=== PATIENT | female | born 1995 | race Caucasian/White ===

== ENCOUNTER 2016-09-18 07:49 | Day surgery (SDC) | payer OTHER ==
[~2016-09-18] VITALS: Ht 167.6 cm; Wt 88.0 kg
[2016-09-18] MEDS ORDERED: SODIUM CHLORIDE 0.9% 1,000 ML IV SCH (08:48)
[2016-09-18 09:04] VITALS: BP 123/80
[2016-09-18] MEDS ORDERED: GABA300C10 PO (09:07)
[2016-09-18 11:51] LABS: ASPARTATE AMINO TRANSFERASE 12 U/L (15-37); BLOOD UREA NITROGEN 10 mg/dL (7-18)
[2016-09-23 14:53] LABS: ALBUMIN CSF 11 mg/dL (11-48); ALBUMIN SERUM 4.1 g/dL (3.5-5.5); CSF IGG INDEX 0.8 (0.0-0.7); CSF/SERUM ALBUMIN INDEX 3 (0-8); IGG SERUM 936 mg/dL (700-1600); IGG SYNTHESIS RATE CSF 0.7 mg/day (-9.9 TO +3.3); IGG/ALBUMIN RATIO CSF 0.18 (0.00-0.25); MYELIN BASIC PROTEIN CSF 0.7 ng/mL (0.0-1.2)
== END 2016-09-18 14:30 | disposition home or self-care (01) ==
LOC: OUT 07:49
PROVIDERS: ATTEND Registered Nurse
DX: R20.0 Anesthesia of skin (principal); R42 Dizziness and giddiness
CPT/HCPCS: 36415; 62270; 77003; 80069; 80076; 82040; 82042; 82784; 83873; 86645; 86695; 86696; 86704; 86706; 86708; 86762; 86777; 86778; 86803; 87340; J7030

== ENCOUNTER 2017-03-28 15:19 | Emergency (ER) | payer OTHER ==
[~2017-03-28] VITALS: Ht 167.6 cm; Wt 95.8 kg
[~2017-03-28 15:19] MED LIST: GABA300C10 PO
[2017-03-28 16:19] LABS: HEMATOCRIT 39.6 % (34.6-47.8); HEMOGLOBIN 13.7 g/dL (11.7-16.4); WHITE BLOOD COUNT 5.2 x10^3/uL (3.4-10)
[2017-03-28 16:26] LABS: BLOOD UREA NITROGEN 6 mg/dL (7-18)
[2017-03-28] MEDS ORDERED: MORPHINE SULFATE 4 MG/ML, 1ML IVPush PRN (18:30)
[2017-03-28] MEDS ORDERED: SODIUM CHLORIDE 0.9% 1,000ML IVBOLUS ONE (18:30)
[2017-03-28] MEDS ORDERED: SODIUM CHLORIDE FLUSH 10ML SYR IVF ONE (18:30)
[2017-03-28] MEDS ORDERED: ONDANSETRON 2MG/ML, 2ML IVPush ONE (18:30)
[2017-03-28] MEDS ORDERED: FLUO20CA19 PO (18:34)
[2017-03-28 19:30] LABS: HCG UR LOT HCG7030192
[2017-03-28 19:42] LABS: HCG UR OBC PASS
[2017-03-28 20:56] VITALS: BP 100/64
== END 2017-03-28 20:58 | disposition home or self-care (01) ==
LOC: ED 19:20
DX: R10.33 Periumbilical pain (principal); R10.12 Left upper quadrant pain; E28.2 Polycystic ovarian syndrome; Z87.442 Personal history of urinary calculi; Z87.891 Personal history of nicotine dependence; Z97.5 Presence of (intrauterine) contraceptive device
CPT/HCPCS: 36415; 76770; 80048; 81001; 81025; 82040; 85025; 87086; 96361; 96374; 96375; 99285; J2405; J7030

== ENCOUNTER 2017-04-22 08:46 | Emergency (ER) | payer OTHER ==
[~2017-04-22] VITALS: Ht 167.6 cm; Wt 94.5 kg
[~2017-04-22 08:46] MED LIST changes: +FLUO20CA19 PO
[2017-04-22] MEDS ORDERED: FING0.5C3 PO (09:21)
[2017-04-22] MEDS ORDERED: ONDANSETRON ODT 4 MG ONE (09:25)
[2017-04-22] MEDS ORDERED: KETOROLAC 30 MG/1 ML ONE (09:25)
[2017-04-22 09:29] LABS: MICROSCOPIC NOT IND
[2017-04-22] MEDS ORDERED: ONDANSETRON ODT 4 MG PO ONE (09:30)
[2017-04-22] MEDS ORDERED: KETOROLAC 60 MG/2 ML IM ONE (09:30)
[2017-04-22 09:49] LABS: BASOPHILS % (AUTO) 0 % (0-1); EOSINOPHILS % (AUTO) 0 % (1-7); LYMPHOCYTES # (AUTO) 0.43 x10^3/uL (1-3.4); LYMPHOCYTES % (AUTO) 7 % (22-44); MD NO; MEAN CORPUSCULAR HEMOGLOBIN 30.6 pg (27.0-34.8); MEAN CORPUSCULAR HGB CONC 34.1 g/dL (32.4-35.8); MEAN CORPUSCULAR VOLUME 89.8 fL (80-100); MEAN PLATELET VOLUME 8.4 fL (7.4-10.4); MONOCYTES # (AUTO) 0.33 x10^3/uL (0.2-0.8); MONOCYTES % (AUTO) 5 % (2-9); NEUTROPHILS # (AUTO) 5.71 x10^3/uL (1.8-6.8); NEUTROPHILS % (AUTO) 88 % (42-75); PLATELET COUNT 288 x10^3/uL (130-400); RED BLOOD COUNT 4.66 x10^6/uL (3.82-5.3); RED CELL DISTRIBUTION WIDTH 12.3 % (9.6-15.2)
[2017-04-22 09:49] LABS: CULTURE INDICATED? NO
[2017-04-22 10:01] LABS: ALBUMIN 3.9 g/dL (3.4-5.0); ANION GAP 7 mmol/L (5-15); CALCIUM 8.8 mg/dL (8.5-10.1); CHLORIDE 107 mmol/L (98-107); CREATININE 0.93 mg/dL (0.55-1.02)
[2017-04-22 11:06] VITALS: BP 121/67
== END 2017-04-22 11:47 | disposition home or self-care (01) ==
LOC: ED 11:40
DX: S39.012A Strain of muscle, fascia and tendon of lower back, initial encounter (principal); Z87.891 Personal history of nicotine dependence; X58.XXXA Exposure to other specified factors, initial encounter; Y93.89 Activity, other specified; Y92.89 Other specified places as the place of occurrence of the external cause; Y99.8 Other external cause status
CPT/HCPCS: 36415; 74176; 80048; 81003; 82040; 84703; 85025; 96372; 99285; J1885; Q0162

== ENCOUNTER 2017-07-13 21:28 | Inpatient (IN) | payer OTHER ==
[~2017-07-13] VITALS: Ht 167.6 cm; Wt 95.9 kg
[~2017-07-13 21:28] MED LIST changes: +CYCL-259 PO; +FING0.5C3 PO; +OXYB5TAB7 PO
[2017-07-13] MEDS ORDERED: ONDANSETRON 2MG/ML, 2ML ONE (21:55)
[2017-07-13] MEDS ORDERED: HYDROmorphone 1 MG/ML, 1ML ONE (21:55)
[2017-07-13] MEDS ORDERED: ONDANSETRON 2MG/ML, 2ML IVPush ONE (22:00)
[2017-07-13] MEDS ORDERED: SODIUM CHLORIDE 0.9% 1,000ML IVBOLUS ONE ×2 (22:00→23:00)
[2017-07-13] MEDS: HYDROmorphone 1 MG/ML, 1ML IVPush PRN (22:07)
[2017-07-13 22:16] LABS: MEAN CORPUSCULAR HEMOGLOBIN 31.1 pg (27.0-34.8); MEAN CORPUSCULAR HGB CONC 34.6 g/dL (32.4-35.8); MEAN CORPUSCULAR VOLUME 89.9 fL (80-100); MEAN PLATELET VOLUME 8.5 fL (7.4-10.4); PLATELET COUNT 275 x10^3/uL (130-400); RED BLOOD COUNT 4.65 x10^6/uL (3.82-5.3); RED CELL DISTRIBUTION WIDTH 13.2 % (9.6-15.2)
[2017-07-13 22:26] LABS: CULTURE INDICATED? YES; MICROSCOPIC AUTO
[2017-07-13 22:28] LABS: ALANINE AMINOTRANSFERASE 76 U/L (12-78); ALBUMIN 4.1 g/dL (3.4-5.0); ANION GAP 12 mmol/L (5-15); CALCIUM 8.8 mg/dL (8.5-10.1); CHLORIDE 106 mmol/L (98-107); CREATININE 1.24 mg/dL (0.55-1.02)
[2017-07-13 22:32] LABS: ALKALINE PHOSPHATASE 97 U/L (45-117); BILIRUBIN,TOTAL 2.2 mg/dL (0.2-1.0); TOTAL PROTEIN 7.8 g/dL (6.4-8.2)
[2017-07-13] MEDS ORDERED: CEFTRIAXONE PMX 1GM/50ML 50 ML IV ONE (23:00)
[2017-07-13] MEDS ORDERED: CEFTRIAXONE PMX 1GM/50ML 50 ML ONE (23:05)
[2017-07-13 23:31] LABS: BASOPHILS % (AUTO) 0 % (0-1); EOSINOPHILS % (AUTO) 0 % (1-7); LYMPHOCYTES # (AUTO) 0.21 x10^3/uL (1-3.4); LYMPHOCYTES % (AUTO) 1 % (22-44); MONOCYTES # (AUTO) 0.55 x10^3/uL (0.2-0.8); MONOCYTES % (AUTO) 3 % (2-9); NEUTROPHILS # (AUTO) 18.62 x10^3/uL (1.8-6.8); NEUTROPHILS % (AUTO) 96 % (42-75)
[2017-07-13 23:44] LABS: CULTURE INDICATED? YES; MICROSCOPIC INDICATED
[2017-07-13 23:59] LABS: MD SCAN
[2017-07-14] MEDS ORDERED: SODIUM CHLORIDE 0.9% 1,000ML IVBOLUS ONE (00:30)
[2017-07-14] MEDS ORDERED: SODIUM CHLORIDE 0.9% 1,000 ML IV ONE (00:32)
[2017-07-14] MEDS ORDERED: HYDROmorphone 1 MG/ML, 1ML ONE (00:37)
[2017-07-14] MEDS: HYDROmorphone 1 MG/ML, 1ML IVPush PRN (00:39)
[2017-07-14] MEDS ORDERED: MORPHINE SULFATE 4 MG/ML, 1ML IVPush PRN (01:00)
[2017-07-14] MEDS ORDERED: ONDANSETRON 2MG/ML, 2ML IVPush PRN ×2 (01:00→18:30)
[2017-07-14 01:34] VITALS: BP 158/85
[2017-07-14] MEDS: HEPARIN 5,000 UNITS/ML, 1ML SQ SCH ×3 (03:30→19:30)
[2017-07-14] MEDS ORDERED: hydrALAzine 20 MG/ML, 1ML IVPush PRN (03:30)
[2017-07-14] MEDS: morphine SULFATE 10 MG/ML, 1ML IVPush PRN ×5 (03:45→21:56)
[2017-07-14] MEDS: ONDANSETRON 2MG/ML, 2ML IVPush PRN ×3 (03:45→20:20)
[2017-07-14] MEDS: LACTATED RINGERS 1,000 ML IV SCH ×2 (03:46→15:22)
[2017-07-14 05:29] LABS: CHLORIDE 110 mmol/L (98-107)
[2017-07-14 05:32] LABS: BASOPHILS # (AUTO) 0.01 x10^3/uL (0-0.1); BASOPHILS % (AUTO) 0 % (0-1); EOSINOPHILS # (AUTO) 0.01 x10^3/uL (0-0.4); EOSINOPHILS % (AUTO) 0 % (1-7); LYMPHOCYTES # (AUTO) 0.26 x10^3/uL (1-3.4); LYMPHOCYTES % (AUTO) 2 % (22-44); MD NO; MEAN CORPUSCULAR HGB CONC 34.5 g/dL (32.4-35.8); MEAN PLATELET VOLUME 8.3 fL (7.4-10.4); MONOCYTES # (AUTO) 0.88 x10^3/uL (0.2-0.8); MONOCYTES % (AUTO) 5 % (2-9); NEUTROPHILS # (AUTO) 15.92 x10^3/uL (1.8-6.8); NEUTROPHILS % (AUTO) 93 % (42-75); PLATELET COUNT 219 x10^3/uL (130-400); RED BLOOD COUNT 4.13 x10^6/uL (3.82-5.3); RED CELL DISTRIBUTION WIDTH 13.6 % (9.6-15.2)
[2017-07-14 05:33] LABS: ANION GAP 7 mmol/L (5-15); CALCIUM 8.2 mg/dL (8.5-10.1); CREATININE 1.04 mg/dL (0.55-1.02)
[2017-07-14] MEDS ORDERED: MAGNESIUM SULFATE PMX 2GM/50ML 50 ML IV ONE (06:00)
[2017-07-14 07:30] VITALS: BP 111/72
[2017-07-14] MEDS: OXYBUTYNIN CHLORIDE 5 MG TABLET PO SCH ×2 (07:56→21:56)
[2017-07-14] MEDS: ACETAMINOPHEN 325 MG TABLET PO PRN (08:03)
[2017-07-14] MEDS: ASA/APAP/ CAFFEINE TABLET PO PRN (10:09)
[2017-07-14 13:35] VITALS: BP 156/93
[2017-07-14] MEDS ORDERED: KETOROLAC 30 MG/1 ML IVPush PRN (15:30)
[2017-07-14] MEDS ORDERED: DIPHENHYDRAMINE/ZINC CRM 2%, 30GM TP PRN (15:30)
[2017-07-14] MEDS ORDERED: MIDAZOLAM 1 MG/ML, 2ML ONE (16:51)
[2017-07-14] MEDS ORDERED: FENTANYL PF 250 MCG/5ML ONE (16:51)
[2017-07-14] MEDS ORDERED: GENTAMICIN 80 MG/2 ML ONE (18:09)
[2017-07-14] MEDS ORDERED: PROPOFOL 10 MG/ML, 20ML ONE (18:14)
[2017-07-14] MEDS ORDERED: ROCURONIUM 10MG/ML,5ML ONE (18:14)
[2017-07-14] MEDS ORDERED: ONDANSETRON 2MG/ML, 2ML ONE (18:14)
[2017-07-14] MEDS ORDERED: OXYcodone 5 MG/5 ML ORAL.SOL UDC PO PRN (18:30)
[2017-07-14] MEDS ORDERED: LABETALOL 5MG/ML, 20ML IV PRN (18:30)
[2017-07-14] MEDS ORDERED: hydrALAzine 20 MG/ML, 1ML IV PRN (18:30)
[2017-07-14] MEDS ORDERED: morphine SULFATE 10 MG/ML, 1ML IV PRN (18:30)
[2017-07-14] MEDS ORDERED: MEPERIDINE/PF 25MG/0.5ML IVPush PRN (18:30)
[2017-07-14] MEDS ORDERED: HYDROmorphone 1 MG/ML, 1ML IV PRN (18:30)
[2017-07-14] MEDS ORDERED: KETOROLAC 30 MG/1 ML IV PRN (18:30)
[2017-07-14] MEDS ORDERED: FENTANYL PF 100 MCG/2ML IV PRN (18:30)
[2017-07-14] MEDS ORDERED: PROMETHAZINE 12.5 MG SUPP PR PRN (18:30)
[2017-07-14] MEDS ORDERED: METOCLOPRAMIDE 5 MG/ML, 2ML ONE ×2 (18:33)
[2017-07-14] MEDS ORDERED: PHENAZOPYRIDINE 200 MG TABLET ONE (18:41)
[2017-07-14] MEDS ORDERED: ACETAMINOPHEN 650 MG/20.3 ML UDC ONE (18:41)
[2017-07-14] MEDS ORDERED: ACETAMINOPHEN 325 MG TABLET PO PRN (19:00)
[2017-07-14] MEDS ORDERED: PHENAZOPYRIDINE 200 MG TABLET PO ONE (19:00)
[2017-07-14 19:51] VITALS: BP 107/58
[2017-07-14] MEDS: TAMSULOSIN 0.4 MG CAP.ER.24H PO SCH (23:30)
[2017-07-14] MEDS ORDERED: PHENAZOPYRIDINE 200 MG TABLET PO PRN (23:30)
[2017-07-14] MEDS: CEFTRIAXONE PMX 1GM/50ML 50 ML IV SCH (23:34)
[2017-07-15 00:18] VITALS: BP 119/69
[2017-07-15] MEDS: ASA/APAP/ CAFFEINE TABLET PO PRN ×3 (02:35→21:06)
[2017-07-15] MEDS: morphine SULFATE 10 MG/ML, 1ML IVPush PRN ×5 (02:35→18:42)
[2017-07-15] MEDS: HEPARIN 5,000 UNITS/ML, 1ML SQ SCH ×3 (03:30→19:30)
[2017-07-15 04:12] VITALS: BP 110/71
[2017-07-15] MEDS: LACTATED RINGERS 1,000 ML IV SCH ×2 (05:16→16:26)
[2017-07-15] MEDS: ONDANSETRON 2MG/ML, 2ML IVPush PRN (05:21)
[2017-07-15 06:00] LABS: MEAN CORPUSCULAR HEMOGLOBIN 30.7 pg (27.0-34.8); MEAN CORPUSCULAR HGB CONC 34.2 g/dL (32.4-35.8); MEAN CORPUSCULAR VOLUME 89.7 fL (80-100); MEAN PLATELET VOLUME 8.7 fL (7.4-10.4); PLATELET COUNT 180 x10^3/uL (130-400); RED BLOOD COUNT 3.73 x10^6/uL (3.82-5.3); RED CELL DISTRIBUTION WIDTH 13.2 % (9.6-15.2)
[2017-07-15] MEDS ORDERED: TAMSULOSIN 0.4 MG CAP.ER.24H PO SCH (06:00)
[2017-07-15 06:04] LABS: CHLORIDE 107 mmol/L (98-107)
[2017-07-15 06:11] LABS: ALANINE AMINOTRANSFERASE 37 U/L (12-78); ALBUMIN 2.9 g/dL (3.4-5.0); ALKALINE PHOSPHATASE 70 U/L (45-117); ANION GAP 7 mmol/L (5-15); BILIRUBIN,TOTAL 1.9 mg/dL (0.2-1.0); TOTAL PROTEIN 6.2 g/dL (6.4-8.2)
[2017-07-15 06:27] LABS: BASOPHILS % (AUTO) 0 % (0-1); EOSINOPHILS % (AUTO) 0 % (1-7); LYMPHOCYTES % (AUTO) 1 % (22-44); MD SCAN; MONOCYTES # (AUTO) 0.36 x10^3/uL (0.2-0.8); MONOCYTES % (AUTO) 4 % (2-9); NEUTROPHILS % (AUTO) 95 % (42-75)
[2017-07-15 07:15] VITALS: BP 113/76
[2017-07-15] MEDS: TAMSULOSIN 0.4 MG CAP.ER.24H PO SCH ×2 (08:09→16:25)
[2017-07-15] MEDS: ACETAMINOPHEN 325 MG TABLET PO PRN (08:09)
[2017-07-15] MEDS: OXYBUTYNIN CHLORIDE 5 MG TABLET PO SCH ×2 (08:09→21:07)
[2017-07-15 13:40] VITALS: BP 111/75
[2017-07-15 19:05] VITALS: BP 111/76
[2017-07-15] MEDS ORDERED: DOCUSATE 100 MG CAPSULE PO PRN (22:00)
[2017-07-15] MEDS: CEFTRIAXONE PMX 1GM/50ML 50 ML IV SCH (23:26)
[2017-07-16] MEDS: TAMSULOSIN 0.4 MG CAP.ER.24H PO SCH ×2 (00:33→09:50)
[2017-07-16] MEDS: LACTATED RINGERS 1,000 ML IV SCH (00:33)
[2017-07-16 00:51] VITALS: BP 104/65
[2017-07-16] MEDS: HEPARIN 5,000 UNITS/ML, 1ML SQ SCH (03:30)
[2017-07-16] MEDS ORDERED: SULF1TAB24 PO (08:21)
[2017-07-16 08:44] VITALS: BP 110/69
[2017-07-16] MEDS: OXYBUTYNIN CHLORIDE 5 MG TABLET PO SCH (09:50)
== END 2017-07-16 11:06 | disposition home or self-care (01) | DRG 871 ==
LOC: ED 22:28 → EDIP 07-14 00:32 → 4WST 07-14 01:11 → DCLOUNGE 07-16 10:58
PROVIDERS: ADMIT Hospitalist; ATTEND Hospitalist
PROC: 0T9B70Z Drainage of Bladder with Drainage Device, Via Natural or Artificial Opening (ICD-10-PCS; 2017-07-14)
PROC: 0T778DZ Dilation of Left Ureter with Intraluminal Device, Via Natural or Artificial Opening Endoscopic (ICD-10-PCS; principal; 2017-07-14 17:00)
DX: A41.9 Sepsis, unspecified organism (principal); N17.0 Acute kidney failure with tubular necrosis; E43 Unspecified severe protein-calorie malnutrition; E87.2 Acidosis; J98.11 Atelectasis; N13.6 Pyonephrosis; B96.20 Unspecified Escherichia coli [E. coli] as the cause of diseases classified elsewhere; E28.2 Polycystic ovarian syndrome; E66.9 Obesity, unspecified; G35 Multiple sclerosis; Z87.442 Personal history of urinary calculi; Z87.891 Personal history of nicotine dependence; Z68.34 Body mass index [BMI] 34.0-34.9, adult; Z91.013 Allergy to seafood
CPT/HCPCS: 36415; 74018; 74176; 76000; 80048; 80053; 81001; 83605; 83690; 83735; 84100; 84145; 84703; 85025; 87040; 87077; 87086; 87186; 93005; 96361; 96365; 96375; 96376; J0696; J1170; J1885; J2250; J2405; J2704; J3010; C1758; C1769; C2617; J1580; J2270; J2765; J3475; J7030; J7120

== ENCOUNTER → 2017-07-30 | Outpatient (CLI) | payer OTHER ==
[~2017-07-30] MED LIST changes: +SULF1TAB24 PO
== END ==
LOC: CFH 13:22
PROVIDERS: ATTEND Physician Assistant Surgical
DX: N20.0 Calculus of kidney (principal)
CPT/HCPCS: 74018

== ENCOUNTER → 2017-11-17 | Outpatient (CLI) | payer OTHER | END | disposition home or self-care (01) | LOC: CFH 07:09 | PROVIDERS: ATTEND Urology | DX: Z09 Encounter for follow-up examination after completed treatment for conditions other than malignant neoplasm (principal); Z87.442 Personal history of urinary calculi; Z87.440 Personal history of urinary (tract) infections; Z97.5 Presence of (intrauterine) contraceptive device | CPT/HCPCS: 74018; 76770 ==